=== PATIENT | male | born 1975 | race Caucasian/White ===

== ENCOUNTER 2017-01-08 09:46 | Emergency (ER) | payer BC ==
--- NOTE | ~2017-01-08 | CR151 ---
[facility] A Service of [facility] & [facility] RADIOLOGY TEXT RESULTS PATIENT: AICHA GOVEA LOCATION: CFTX : 73 UNIT #: [id number] AGE: [address]: Domenica Briones APRN SEX: M ORDER DR: [id number] [facility] [address]. [place], [place] [address] [id number] E MR#: [id number] Acc #: [id number] NAME: AICHA GOVEA : 1975 SEX: M STUDY DATE/TIME: 01/08/2017 UNIT: [facility] ROOM: STUDY DESCRIPTION: CR Hip Min 2 Views Rt Attending Physician: Domenica Briones A.P.R.N. Ordering Physician: Ed Dax Martinez M.D. Primary Care Physician: No Primary Care Physician MEDICAL IMAGING REPORT This report is preliminary unless electronic signature is present EXAM Right hip 01/08/2017 1131 hours HISTORY Patient fell yesterday with worsening hip pain since fall. COMPARISON 01/04/2017 FINDINGS AP pelvis and frog lateral view right hip demonstrate normal bone density. Hip joint spaces are preserved. There is no fracture. Question is raised of mild sclerotic change at the sacroiliac joints. IMPRESSION No pelvic or hip fracture seen. No change from the recent right hip film, 01/04/2017. Question is raised of mild sclerosis at bilateral sacroiliac joints. Dictated by... Priscila Mcleod M.D. THIS IS AN ELECTRONICALLY VERIFIED REPORT Priscila Mcleod M.D. at 01/08/2017 2:29 PM Mary TD: 01/08/2017 12:11 JOB #: [id number] MEDICAL IMAGING REPORT Page 1 of 1 COPY
[~2017-01-08 09:46] MED LIST: ATARAX PO; ATHLETE'S FOOT15 GM TP; DICLOFENAC PO; FLEXERIL PO; FLEXERIL10 MG PO; HYDROCODON-ACE1 EAC5 PO; LORTAB 5-325 M1 EACH PO; MEDROL PO; MEDROL4 MG/DOSE- PO; NAPROSYN500 MG PO; NAPROXEN PO; NO MEDICATIONS; NO MEDS; PEPCID AC20 M2 PO; PREDNISONE PO; PYRIDIUM PO; ROBAXIN 750750 M1 PO; SILVADENE TOP; SOMA PO; TYLENOL #3 PO; TYLOX1 CAP 5/50 PO; VOLTAREN50 MG PO; VOLTAREN75 MG PO; ZITHROMAX1 G/PKT PO; ZOFRAN ODT4 MG PO
== END 2017-01-08 12:17 | disposition home or self-care (01) ==
LOC: CED 09:46 → CFTX 09:46
DX: S70.01XA Contusion of right hip, initial encounter (principal); W19.XXXA Unspecified fall, initial encounter; Y92.69 Other specified industrial and construction area as the place of occurrence of the external cause
CPT/HCPCS: 73502; 99283

== ENCOUNTER 2017-01-15 21:47 | Emergency (ER) | payer BC ==
--- NOTE | ~2017-01-15 | CR94 ---
[facility] A Service of [facility] & [facility] RADIOLOGY TEXT RESULTS PATIENT: AICHA GOVEA LOCATION: SED : 74 UNIT #: [id number] AGE: [address]: Corey Burgos MD SEX: M ORDER DR: [id number] [place] [address] [id number] E MR#: [id number] Acc #: [id number] NAME: AICHA GOVEA : 1975 SEX: M STUDY DATE/TIME: 01/15/2017 23:21 UNIT: SED ROOM: STUDY DESCRIPTION: CR Elbow Min 3 Views Rt Attending Physician: Corey Burgos M.D. Ordering Physician: Corey Burgos M.D. Primary Care Physician: Primary Care Physician No MEDICAL IMAGING REPORT This report is preliminary unless electronic signature is present. EXAM Right elbow INDICATION Right elbow pain status post trauma. Fall. FINDINGS 3 views of the right elbow without comparison. There is no acute fracture or dislocation. No elbow effusion. IMPRESSION Negative right elbow. Dictated by... Javier Marinelli M.D. THIS IS AN ELECTRONICALLY VERIFIED REPORT Javier Marinelli M.D. at 01/16/2017 12:20 AM Juan TD: 01/16/2017 00:10 JOB #: [id number] MEDICAL IMAGING REPORT Page 1 of 1
[2017-01-15] MEDS ORDERED: HCTZ (22:05)
== END 2017-01-15 23:51 | disposition home or self-care (01) ==
LOC: SED 21:47
DX: S50.01XA Contusion of right elbow, initial encounter (principal); W19.XXXA Unspecified fall, initial encounter
CPT/HCPCS: 73080; 99283

== ENCOUNTER 2017-03-04 22:41 | Observation (INO) | payer OTHER ==
--- NOTE | ~2017-03-04 | CR72 ---
[facility] A Service of [facility] & [facility] RADIOLOGY TEXT RESULTS PATIENT: AICHA GOVEA LOCATION: [facility] 215- : 73 UNIT #: [id number] AGE: [address]: Nitin Shipley MD SEX: M ORDER DR: [id number] [address] [address] [id number] I MR#: [id number] Acc #: [id number] NAME: AICHA GOVEA : 1975 SEX: M STUDY DATE/TIME: 03/05/2017 0:19 UNIT: SEDOF ROOM: [facility] STUDY DESCRIPTION: CR Chest Single View Portable Attending Physician: Nitin Shipley M.D. Ordering Physician: Kourtney Burris M.D. Primary Care Physician: Primary Care Physician No MEDICAL IMAGING REPORT This report is preliminary unless electronic signature is present. EXAM Portable chest INDICATION Pizza roll got stuck in throat with cough and shortness of air. This happened tonight. FINDINGS A portable view of the chest was obtained and compared with 04/07/2016. The heart size and vascularity are normal and the lungs are clear and the bones are normal. IMPRESSION Normal portable view of the chest. Dictated by... Moisés Warren M.D. THIS IS AN ELECTRONICALLY VERIFIED REPORT Moisés Warren M.D. at 03/05/2017 5:48 AM SHAMIKA/yoselin TD: 03/05/2017 03:17 JOB #: [id number] MEDICAL IMAGING REPORT Page 1 of 1
--- NOTE | ~2017-03-04 | OR ---
Unit #: [id number] #: [id number] Patient: AICHA GOVEA [id number] [address] [address] [id number] I MR#: [id number] NAME: AICHA GOVEA ROOM: 215 Date of Procedure: 03/05/2017 Admission Date: 03/05/2017 Surgeon: Nitin Shipley M.D. : 1975 Attending Physician: Nitin Shipley M.D. Primary Care Physician: Primary Care Physician No OPERATIVE REPORT PROCEDURES PERFORMED 1. Esophagogastroduodenoscopy with foreign body removal. 2. Esophagogastroduodenoscopy with biopsies. INDICATIONS FOR PROCEDURE A 41-year-old gentleman presented with severe dysphagia after eating food, possible meat impaction, undergoing evaluation with upper endoscopy. MEDICATIONS Monitored anesthesia. POSTOPERATIVE FINDINGS 1. Large piece of food stuck in the upper esophagus, removed using Gambino net piecemeal. Small left over was pushed into the stomach. 2. 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 No biopsies were taken at this time. 3. Moderate gastritis along with several small superficial ulcers. Biopsies were taken. 4. Normal duodenum and distal duodenum. PLAN PPI therapy. Soft diet. DESCRIPTION OF PROCEDURE The patient was explained of the procedure, risks, and benefits along with risks and benefits of anesthesia. He was brought to the endoscopy room. Monitored anesthesia was given. The scope was passed into the mouth and esophagus. Food was seen. At this point, we used a Gambino net, made several passes to remove this. Small left over was pushed into the stomach. Exam was then completed. Gastric findings as described. Biopsies were taken. Gently, I pulled the scope out of the patient's mouth. He tolerated it well with no major complications were seen. Dictated by... Coco Doll/norm TD: 03/06/2017 03:49 JOB #: [id number] Unit #: [id number] #: [id number] Patient: AICHA GOVEA OPERATIVE REPORT Page 1 of 1 X Nitin Shipley MD PROCEDURE OPERATIVE NOTE
--- NOTE | ~2017-03-04 | DS ---
Unit #: [id number] #: [id number] Patient: AICHA GOVEA [id number] [address] [address] [id number] I MR#: [id number] NAME: AICHA GOVEA ROOM: 215 Age: 41 Sex: M Admission Date: 03/04/2017 : 1975 Discharge Date: 03/05/2017 Attending Physician: Nitin Shipley M.D. Primary Care Physician: No Primary Care Physician DISCHARGE SUMMARY DISCHARGE DIAGNOSES 1. Esophageal meat impaction status post esophagogastroduodenoscopy and removal. 2. 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 3. Gastritis and gastric ulcers. 4. Chronic back pain. PROCEDURES EGD, foreign body removal and biopsy. CONSULTS None. HOSPITAL SUMMARY Mr. Govea is a 41-year-old gentleman who was admitted through the emergency room when he presented after eating a pizza roll, which was still stuck. He was unable to swallow or drink and was (1) constantly. EGD was done in the hospital where a foreign body was seen and removed. There were significant findings of esophagitis, possibly eosinophilic, with multiple esophageal rings, as well as gastritis with small gastric ulcers. Biopsies were taken from the stomach, also. The patient is being discharged on PPI and on mechanical soft diet in stable condition. DISCHARGE CONDITION Stable. ACTIVITY Ad honey MEDICATION Pantoprazole 40 mg daily. Dictated by... Coco Doll/gregor TD: 03/06/2017 14:53 JOB #: [id number] Unit #: [id number] #: [id number] Patient: AICHA GOVEA DISCHARGE SUMMARY Page 1 of 1 X Nitin Shipley MD X DISCHARGE SUMMARY
[~2017-03-04 22:41] MED LIST changes: +HCTZ
[2017-03-05] MEDS ORDERED: VISTARIL PO (03:07)
[2017-03-05] MEDS ORDERED: LORTAB 7.5-3251 EACH PO ×2 (03:08→03:09)
[2017-03-05] MEDS ORDERED: PANTOPRAZOLE SO40 MG PO (08:44)
== END 2017-03-05 10:17 | disposition home or self-care (01) ==
LOC: SED 22:41 → CEDOF 03-05 00:17 → SED 03-05 00:18 → CEDOF 03-05 00:24 → SEDOF 03-05 00:24 → C2A 03-05 02:12
DX: T18.128A Food in esophagus causing other injury, initial encounter (principal); K20.9 Esophagitis, unspecified; K22.2 Esophageal obstruction; K29.50 Unspecified chronic gastritis without bleeding; K25.9 Gastric ulcer, unspecified as acute or chronic, without hemorrhage or perforation; M54.9 Dorsalgia, unspecified; G89.29 Other chronic pain; F17.200 Nicotine dependence, unspecified, uncomplicated
CPT/HCPCS: 71010; 88305; 88312; 96374; 96375; 99284; C9113; G0378; J1610; J2250

== ENCOUNTER → 2017-04-27 | Outpatient (CLI) | payer OTHER ==
[~2017-04-27] MED LIST changes: +LORTAB 7.5-3251 EACH PO; +PANTOPRAZOLE SO40 MG PO; +VISTARIL PO
--- NOTE | ~2017-04-27 | CR169 ---
[facility] A Service of [facility] & [facility] RADIOLOGY TEXT RESULTS PATIENT: AICHA GOVEA LOCATION: [facility] : 73 UNIT #: [id number] AGE: [address]: Woody Duque MD SEX: M ORDER DR: [id number] [facility] [address] [facility]. [place], [place] [address] [id number] O MR#: [id number] Acc #: [id number] NAME: AICHA GOVEA : 1975 SEX: M STUDY DATE/TIME: 04/27/2017 14:24 UNIT: [facility] ROOM: STUDY DESCRIPTION: CR Knee 2 Views Lt Attending Physician: Woody Duque M.D. Ordering Physician: Woody Duque M.D. Primary Care Physician: No Primary Care Physician MEDICAL IMAGING REPORT This report is preliminary unless electronic signature is present EXAM Left knee, 2 views, 04/27/2017. HISTORY Left knee pain for 6 months. No known trauma. FINDINGS AP and lateral projection of the knee shows smooth articular anatomy without indication of fracture or dislocation at the major weight-bearing surface of the knee. There is no indication of radiopaque foreign body about the knee surface or joint effusion. IMPRESSION Normal knee. Dictated by... Terry Ying M.D. THIS IS AN ELECTRONICALLY VERIFIED REPORT Terry Ying M.D. at 04/28/2017 6:37 AM LUCRECIA/judy TD: 04/27/2017 17:39 JOB #: [id number] MEDICAL IMAGING REPORT Page 1 of 1 COPY
--- NOTE | ~2017-04-27 | CR170 ---
[facility] A Service of [facility] & [facility] RADIOLOGY TEXT RESULTS PATIENT: AICHA GOVEA LOCATION: [facility] : 73 UNIT #: [id number] AGE: [address]: Woody Duque MD SEX: M ORDER DR: [id number] [facility] [address] [facility] [place], [place] [address] [id number] O MR#: [id number] Acc #: [id number] NAME: AICHA GOVEA : 1975 SEX: M STUDY DATE/TIME: 04/27/2017 14:23 UNIT: [facility] ROOM: STUDY DESCRIPTION: CR Knee 2 Views Rt Attending Physician: Woody Duque M.D. Ordering Physician: Woody Duque M.D. Primary Care Physician: No Primary Care Physician MEDICAL IMAGING REPORT This report is preliminary unless electronic signature is present EXAM Right knee, 2 views, 04/27/2017. HISTORY Right knee pain for 6 months. No known trauma. FINDINGS AP and lateral projection of the knee shows smooth articular anatomy without indication of fracture or dislocation at the major weight-bearing surface of the knee. There is no indication of radiopaque foreign body about the knee surface or joint effusion. IMPRESSION Normal knee. Dictated by... Terry Ying M.D. THIS IS AN ELECTRONICALLY VERIFIED REPORT Terry Ying M.D. at 04/28/2017 6:38 AM LUCRECIA/judy TD: 04/27/2017 17:26 JOB #: [id number] MEDICAL IMAGING REPORT Page 1 of 1 COPY
== END | disposition home or self-care (01) ==
LOC: CRAD 14:10
DX: M17.0 Bilateral primary osteoarthritis of knee (principal)
CPT/HCPCS: 73560